=== PATIENT | female | born 1980 | race Caucasian/White ===

== ENCOUNTER 2018-06-22 17:52 | Emergency (ER) | payer OTHER ==
--- NOTE | 2018-06-22 19:12 | EDM.PDOC ---
ED HPI GENERAL MEDICAL PROBLEM - General Chief Complaint: CHANNELER INSOLE Problem Stated Complaint: OB PROBLEM Time Seen by Provider: 06/22/18 18:10 Source of Information: Reports: Patient History Limitations: Reports: No Limitations - History of Present Illness INITIAL COMMENTS - FREE TEXT/NARRATIVE: Patient presents to ER with concerns of "leaking fluid". She is 26 weeks gestation. Had noted increased "milky" discharge over the week but in the last 24 hours, has had leaking to where it saturated her underwear x3. She states today the drainage was more clear. She did not note any blood. Denies abdominal cramping. Notes less movement today. Has had an uneventful up to this point. Did contact her OB in [place] who recommended she be evaluated. Onset: Today Duration: Hour(s): Location: Reports: Abdomen Associated Symptoms: Denies: Chest Pain, Cough, Fever/Chills, Loss of Appetite, Nausea/Vomiting, Shortness of Breath, Weakness - Related Data Allergies Allergy/AdvReac Type Severity Reaction Status Date / Time No Known Allergies Allergy Verified 06/22/18 18:01 Home Meds: Home Meds Magnesium 500 mg PO DAILY 06/22/18 [History] Pnv No.122/Iron/Folic Acid [ Multi Tablet] 1 tab PO DAILY 06/22/18 [ History] Past Medical History CHANNELER INSOLE History: Reports: Other CHANNELER INSOLE History: CURRENTLY 26 WEEKS - Past Surgical History HEENT Surgical History: Reports: Tonsillectomy Social & Family History - Family History Family Medical History: Noncontributory - Tobacco Use Smoking Status *Q: Never Smoker Second Hand Smoke Exposure: No - Caffeine Use Caffeine Use: Reports: Coffee - Recreational Drug Use Recreational Drug Use: No ED ROS GENERAL - Review of Systems Review Of Systems: See Below Constitutional: Denies: Fever, Chills, Malaise, Weakness, Fatigue, Decreased Appetite HEENT: Reports: No Symptoms Respiratory: Denies: Shortness of Breath, Cough Cardiovascular: Denies: Chest Pain, Edema, Lightheadedness Endocrine: Denies: Fatigue GI/Abdominal: Denies: Abdominal Pain, Nausea, Vomiting : Reports: Discharge (clear discharge today) Musculoskeletal: Reports: No Symptoms Skin: Reports: No Symptoms ED EXAM - Physical Exam Exam: See Below Exam Limited By: No Limitations General Appearance: Alert, WD/WN, No Apparent Distress Ears: Normal External Exam, Normal TMs Nose: Normal Inspection, Normal Mucosa Throat/Mouth: Normal Inspection, Normal Oropharynx Head: Normocephalic Neck: Normal Inspection, Supple, Non-Tender Respiratory/Chest: No Respiratory Distress, Lungs Clear, Normal Breath Sounds Cardiovascular: Regular Rate, Rhythm GI/Abdominal Exam: Normal Bowel Sounds, Soft, Other (gravid) Heart Tones: Present Heart Tones per Min: 130 Movement: Active Extremities: Normal Inspection, Normal Capillary Refill Neurological: Alert, Oriented Psychiatric: Anxious Skin Exam: Warm, Dry Course - Vital Signs Last Recorded V/S: Last Vital Signs Temp 98.8 F 06/22/18 18:03 Pulse 99 06/22/18 18:03 Resp 16 06/22/18 18:03 BP 137/88 06/22/18 18:03 Pulse Ox 99 06/22/18 18:03 - Orders/Labs/Meds Orders: Active Orders 24 hr Category Date Time Status Amniotic Fluid POC Testing [POC Labs] [RC] ASDIRECTED Care 06/22/18 18:44 Active OB Ltd 1 or More Fetus [US] Stat Exams 06/22/18 18:06 Taken CULTURE GENITAL [RM] Stat Lab 06/22/18 19:02 Received Labs: Laboratory Tests 06/22/18 Range/Units 18:44 Urine Color Yellow (YELLOW) Urine Appearance Clear (CLEAR) Urine pH 5.5 (4.5-8.0) Ur Specific [place] <= 1.005 (1.003-1.020) Urine Protein Negative (NEGATIVE) mg/dL Urine Glucose (UA) Negative (NEGATIVE) mg/dL Urine Ketones Negative (NEGATIVE) mg/dL Urine Occult Blood Negative (NEGATIVE) Urine Nitrite Negative (NEGATIVE) Urine Bilirubin Negative (NEGATIVE) Urine Urobilinogen 0.2 (0.2-1.0) EU/dL Ur Leukocyte Esterase Small H (NEGATIVE) Urine RBC Not seen (0-5) /HPF Urine WBC 0-5 (0-5) /HPF Ur Squamous Epith Cells Occasional H (NOT SEEN) /HPF Urine Bacteria Occasional H (NOT SEEN) /HPF Urine Yeast Occasional H (NOT SEEN) /HPF Meds: Medications Discontinued Medications Generic Name Dose Route Start Last Admin Trade Name Freq PRN Reason Stop Dose Admin Fluconazole 150 mg 06/22/18 19:15 04/20/19 19:20 Diflucan PO 150 mg DAILY JENAE Administration - Re-Assessments/Exams Free Text/Narrative Re-Assessment/Exam: 06/22/18 Ultrasound done, shows good heart tones, fluid level and movement. Sterile speculum exam done. Cervix is closed. Has thick yellowish discharge. Amniotest done and negative. Fern test negative. Wet prep done that does show yeast, bacteria and white cells. No clue cells. Contacted Dr. Hernandez at [facility], patient's OB doctor. No other recommendations given. Was given Diflucan here. Will contact her with culture results. Reassured of ultrasound and lab findings. Departure - Departure Time of Disposition: 19:14 Disposition: Home, Self-Care 01 Condition: Good Clinical Impression: Candidal vulvovaginitis, Vaginal discharge - Discharge Information *PRESCRIPTION DRUG MONITORING PROGRAM REVIEWED*: No *COPY OF PRESCRIPTION DRUG MONITORING REPORT IN PATIENT CONNIE: No Referrals: PCP,Not In Area [Primary Care Provider] - Forms: ED Department Discharge Additional Instructions: 1. Rest 2. Diflucan 150 mg today, repeat in 3 days 3. Will contact you with full results of culture on Sunday or Sunday 4. Follow up with OB provider as needed - Problem List & Annotations (1) Second trimester SNOMED Code(s): 67498518 Code(s): Z34.92 - ENCNTR FOR SUPRVSN OF NORMAL PREG, UNSP, SECOND TRIMESTER Status: Acute (2) Candidal vulvovaginitis SNOMED Code(s): 55555591 Code(s): B37.3 - CANDIDIASIS OF VULVA AND VAGINA Status: Acute (3) Vaginal discharge SNOMED Code(s): 631346014 Code(s): N89.8 - OTHER SPECIFIED NONINFLAMMATORY DISORDERS OF VAGINA Status : Acute - My Orders Last 24 Hours: My Active Orders 06/22/18 18:06 OB Ltd 1 or More Fetus [US] Stat 06/22/18 18:44 Amniotic Fluid POC Testing [POC Labs] [RC] ASDIRECTED 06/22/18 19:02 CULTURE GENITAL [RM] Stat - Assessment/Plan Last 24 Hours: My Active Orders 06/22/18 18:06 OB Ltd 1 or More Fetus [US] Stat 06/22/18 18:44 Amniotic Fluid POC Testing [POC Labs] [RC] ASDIRECTED 06/22/18 19:02 CULTURE GENITAL [RM] Stat
[2018-06-22] MEDS ORDERED: Fluconazole 100 MG Tab PO SCH (19:15)
== END 2018-06-22 19:29 | disposition home or self-care (01) ==
LOC: CC.ED 17:52
DX: O98.812 Other maternal infectious and parasitic diseases complicating pregnancy, second trimester (principal); B37.3 Candidiasis of vulva and vagina; Z3A.26 26 weeks gestation of pregnancy
CPT/HCPCS: 76815; 81001; 87070; 87077; 87210; 99284-25; A9270-GY